=== PATIENT | male | born 2005 | race Caucasian/White ===

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

== ENCOUNTER 2023-01-14 07:46 | Outpatient (CLI) | payer BC, SELFPAY ==
[2023-01-14 08:26] LABS: Hematocrit 44.2 % (42.0-52.0); Hemoglobin 14.9 g/dL (14.0-18.0); Mean Corpuscular HGB Conc 33.7 g/dl (32-36); Mean Corpuscular Hemoglobin 30.3 pg (26-34); Mean Corpuscular Volume 89.8 fl (80-100); Mean Platelet Volume 9.2 fl (7.4-10.4); Platelet Count Result 207 k/mm3 (150-375); Red Blood Count 4.92 M/mm3 (4.6-6.20); Red Cell Distribution Width 13.1 % (11.5-14.5); White Blood Count 5.6 K/mm3 (4.5-10.0)
[2023-01-14 08:34] LABS: Appearance Urine Clear (Clear); Bacteria Urine None Seen /hpf; Bilirubin Urine Negative (Negative); Blood Urine Negative (Negative); Color Urine Yellow (Yellow); Glucose Urine UA Negative (Negative); Ketones Urine Trace mg/dL (Negative); Leukocyte Esterase Ur Negative LEU/UL (NEGATIVE); Nitrate Urine Negative (Negative); Non Pathogenic Casts 0-2; Protein Urine Trace mg/dL (Negative); RBC Urine 0-2 /hpf (0-2); Specific Grav Ur 1.024 (1.001-1.035); Squamous Epithelial Cell Urine None seen /hpf (Few); WBC Urine 0-5 /hpf (0-3)
[2023-01-14 08:36] LABS: Add Urine Microscopic? YES
[2023-01-14 08:40] LABS: Albumin Level 4.8 g/dL (3.7-5.6); Anion Gap 7 mmol/L (8-16); Blood Urea Nitrogen 12 mg/dL (8-21); Calcium 9.1 mg/dL (8.9-10.7); Carbon Dioxide 30 mmol/L (22-30); Chloride 103 mmol/L (98-107); Estimated Glomerular Filt Rate > 60; Glucose 92 mg/dL (65-110); Phosphorus 3.5 mg/dL (2.5-4.5); Potassium 4.2 mmol/L (3.4-5.0); Sodium 140 mmol/L (134-143)
[2023-01-14 08:47] LABS: Complement C3 109 mg/dL (88-165)
[2023-01-14 09:23] LABS: Erythrocyte Sedimentation Rate 8 mm/hr (0-20)
[2023-01-14 14:47] LABS: Creatinine Urine 290.4 mg/dL; Total Protein Urine Random 9 mg/dL; Ur Ttl Prot Creatinine Ratio 0.03 mg/mg (0-0.20)
[2023-01-17 19:08] LABS: Complement Total CH50 58 U/mL (31-60)
[2023-01-17 19:54] LABS: Kappa\\Lambda Light Chains 1.53 (0.26-1.65); Lambda Light Chain 13.2 mg/L (5.7-26.3)
== END 2023-01-14 07:47 | disposition home or self-care (01) ==
PROVIDERS: PCP Family Medicine; Visit Provider Internal Medicine Nephrology
DX: R80.9 Proteinuria, unspecified (principal)
CPT/HCPCS: 36415; 80069; 81001; 82570; 83883; 84156; 85027; 85652; 86038; 86160; 86162; 86334

== ENCOUNTER 2023-01-27 16:35 | Outpatient (CLI) | payer BC, SELFPAY ==
--- NOTE | ~2023-01-27 | US_ITS ---
US renal BI 01/27/2023 18:06 Procedure: Realtime transabdominal ultrasound of the kidneys and bladder. Indication: Proteinuria Comparison: No prior studies for comparison. Findings: Renal echotexture is normal bilaterally without hydronephrosis, contour deforming mass or r enal calculus. 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 The right kidney maria alejandra sures 10.7 cm and left kidney measures 10.7 cm. Bladder is unremarkable. No significant post void res idual. Impression: 1: Unremarkable renal ultrasound. Reviewed, dictated and finalized at location A. Impression: 1: Unremarkable renal ultrasound.
== END 2023-01-27 16:36 | disposition home or self-care (01) ==
LOC: ANHIMG 16:36
PROVIDERS: PCP Family Medicine; Visit Provider Internal Medicine Nephrology
DX: R80.9 Proteinuria, unspecified (principal)
CPT/HCPCS: 76775

== ENCOUNTER 2023-02-21 16:57 | Outpatient (CLI) | payer BC, SELFPAY ==
[2023-03-01 08:14] LABS: Albumin 60%; Creat 24 Hr 1.06; Protein,total, 24 Hr Ur 216 mg/24h
[2023-03-01 08:15] LABS: Pro/Creat Ratio 205
== END 2023-02-21 16:58 | disposition home or self-care (01) ==
LOC: ANHLAB 16:58
PROVIDERS: PCP Family Medicine; Visit Provider Internal Medicine Nephrology
DX: R80.9 Proteinuria, unspecified (principal)
CPT/HCPCS: 86335